=== PATIENT | female | born 1955 | race Caucasian/White ===

== ENCOUNTER → 2018-07-21 | Outpatient (CLI) | payer BC ==
[~2018-07-21] MED LIST: ACYCLOVIR200 MG PO; ASPIRIN81 MG PO; BENTYL10 MG PO; CRESTOR10 MG PO; METOPROLOL SUCC25 MG PO; ULTRAM50 MG PO
--- NOTE | 2018-07-21 13:28 | Diagnostic Imaging Report ---
EXAMINATION: CHEST 2 VIEWS INDICATION: \[id number] \S\[id number] \S\CHRONIC COUGH COMPARISON: None FINDINGS: PA and lateral views TUBES and LINES: None. LUNGS: Lungs are well inflated. Linear bibasilar opacities, likely atelectasis. There is no evidence of pneumonia or pulmonary edema. PLEURA: No pleural effusion or pneumothorax. HEART AND MEDIASTINUM: The cardiomediastinal silhouette is unremarkable. BONES AND SOFT TISSUES: No acute osseous lesion. Rightward convex curvature of the upper thoracic spine. Soft tissues are unremarkable. UPPER ABDOMEN: No free air under the diaphragm. IMPRESSION: No acute thoracic abnormality. Signed by: DR. David Barrera MD on 07/21/2018 1:25 PM
== END ==
LOC: RAD 12:00
PROVIDERS: ATTEND Internal Medicine
DX: R05 Cough (principal); J44.9 Chronic obstructive pulmonary disease, unspecified; R74.0 Nonspecific elevation of levels of transaminase and lactic acid dehydrogenase [LDH]
CPT/HCPCS: 71046

== ENCOUNTER 2024-06-07 12:49 | Outpatient (RCR) | payer MEDICARE, OTHER ==
[~2024-06-07 12:49] MED LIST changes: +VERAPAMIL ER120 MG PO; +ZONEGRAN100 MG PO
== END 2024-06-20 ==
LOC: PT 12:49
PROVIDERS: ATTEND Internal Medicine
DX: H81.4 Vertigo of central origin (principal)

== ENCOUNTER 2025-03-22 20:23 | Emergency (ER) | payer MEDICARE, OTHER ==
[~2025-03-22] VITALS: Ht 162.6 cm; Wt 63.5 kg
[2025-03-22 20:43] VITALS: TEMP 97.7
[2025-03-22] MEDS: SODIUM CHLORIDE 0.9% 1000ML 1,000 ML IV ONE (20:50)
[2025-03-22] MEDS: ONDANSETRON HCL INJ 2MG/ML 2ML 2 MG/ML VIAL IV STA (20:51)
[2025-03-22 20:57] LABS: BASOPHILS % 0.5 % (0.0-1.0); EOSINOPHILS # (AUTO) 0.1 (0.0-0.4); EOSINOPHILS % 3.6 % (0.0-6.0); HEMATOCRIT 49.7 % (34.2-44.1); HEMOGLOBIN 16.9 g/dL (12.0-16.0); LYMPHOCYTES # (AUTO) 1.4 (1.0-3.2); LYMPHOCYTES % 36.2 % (18.0-39.1); MEAN CORPUSCULAR HEMOGLOBIN 32.8 pg (28-32); MEAN CORPUSCULAR VOLUME 96.5 fL (81-99); MONOCYTES # (AUTO) 0.4 (0.2-0.8); MONOCYTES % 11.1 % (4.4-11.3); NEUTROPHILS # (AUTO) 1.9 (2.1-6.9); NEUTROPHILS % 48.6 % (38.7-80.0); PLATELET COUNT 213 x10e3/uL (140-360); RED BLOOD COUNT 5.15 x10e6/uL (3.6-5.1); RED CELL DISTRIBUTION WIDTH 12.7 % (11.7-14.4); WHITE BLOOD COUNT 3.87 x10e3/uL (4.8-10.8)
[2025-03-22 21:10] LABS: ETHANOL 165.4 mg/dL (0.0-10.0); LIPASE 75 U/L (8-78)
[2025-03-22 21:13] LABS: ALBUMIN 4.2 g/dL (3.5-5.0); ALBUMIN/GLOBULIN RATIO 1.2 (0.8-2.0); ANION GAP 16.5 mmol/L (8-16); BILIRUBIN,TOTAL 0.4 mg/dL (0.2-1.2); CREATININE, SERUM 1.02 mg/dL (0.57-1.11); POTASSIUM 3.5 mmol/L (3.5-5.1); TOTAL PROTEIN 7.8 g/dL (6.5-8.1)
[2025-03-22] MEDS ORDERED: IOPAMIDOL 370 MG/ML 100 ML INFUS..BTL INJ ONE (21:20)
[2025-03-22 21:34] LABS: TROPONIN I < 0.001 ng/mL (0-0.300)
[2025-03-22 22:05] LABS: BILIRUBIN,URINE NEGATIVE (NEGATIVE); CLARITY,URINE SL CLOUDY (CLEAR); COLOR,URINE YELLOW (YELLOW); GLUCOSE, URINE NEGATIVE (NEGATIVE); KETONES,URINE NEGATIVE (NEGATIVE); LEUKOCYTE ESTERASE ,URINE SMALL (NEGATIVE); NITRITE,URINE POSITIVE (NEGATIVE); PH,URINE 5.5 (5 - 7); PROTEIN,URINE DIPSTICK NEGATIVE (NEGATIVE); URINE UROBILINOGEN 0.2 mg/dL (0.2 - 1)
[2025-03-22 22:10] LABS: BACTERIA,URINE MANY /HPF; EPITHELIAL CELLS,URINE MODERATE /LPF; WBC,URINE (MAN) 21-50 /HPF (0-5)
[2025-03-22 22:11] LABS: RENAL EPITHELIAL CELLS,URINE FEW
[2025-03-22] MEDS: HALOPERIDOL LACTATE 5 MG/ML VIAL IV ONE (22:14)
[2025-03-22] MEDS: KETOROLAC TROMETHAMINE 30 MG/ML VIAL IV STA (22:15)
[2025-03-22] MEDS ORDERED: CEFTRIAXONE 1 GM VIAL ONE (22:31)
[2025-03-22] MEDS ORDERED: CEFDINIR300 MG PO (23:11)
[2025-03-22] MEDS ORDERED: ONDANSETRON ODT4 MG SL (23:11)
[2025-03-22] MEDS ORDERED: PANTOPRAZOLE SO40 MG PO (23:11)
[2025-03-22] MEDS: BELLADONNA ALK/PHENOBARBITAL 5 ML UDC PO ONE (23:24)
[2025-03-22] MEDS: MAGNESIUM/ALUMINUM/SIMETHICONE 30 ML UDC PO ONE (23:24)
[2025-03-22] MEDS: LIDOCAINE VISC 2% SOLN 15 ML UDC PO ONE (23:24)
[2025-03-22 23:26] VITALS: PULSE 77; RESP 16
[2025-03-22 23:29] VITALS: BP 113/69; PULSE 77; RESP 16; TEMP 98; O2SAT 98
[2025-03-22 23:32] LABS: AMPHETAMINES SCREEN,URINE NEGATIVE (NEGATIVE); BENZODIAZEPINES SCREEN,URINE NEGATIVE (NEGATIVE); CANNABINOIDS SCREEN,URINE NEGATIVE (NEGATIVE); COCAINE SCREEN,URINE NEGATIVE (NEGATIVE); METHADONE SCREEN, URINE NEGATIVE (NEGATIVE); OPIATES SCREEN,URINE NEGATIVE (NEGATIVE); PHENCYCLIDINE SCREEN,URINE NEGATIVE (NEGATIVE)
== END 2025-03-22 23:46 | disposition home or self-care (01) ==
LOC: ER 20:40
DX: R10.12 Left upper quadrant pain (principal); R11.0 Nausea; K29.20 Alcoholic gastritis without bleeding; F10.129 Alcohol abuse with intoxication, unspecified; N39.0 Urinary tract infection, site not specified; R94.31 Abnormal electrocardiogram [ECG] [EKG]; Z87.19 Personal history of other diseases of the digestive system
CPT/HCPCS: 36415; 74177; 80053; 80307; 80320; 81001; 83690; 84484; 85025; 93005; 99284; J0696; J1630; J1885; J2405; J2470; J7030; Q9967